=== PATIENT | female | born 1940 | race Caucasian/White ===

== ENCOUNTER 2018-04-07 16:16 | Emergency (ER) | payer MEDICARE, OTHER ==
[~2018-04-07] VITALS: Ht 160 cm; Wt 81.7 kg
[~2018-04-07 16:16] MED LIST: ALPR.25; AMLO10 PO; AMLO5 PO; AMOX875 PO; Amaryl2 MG PO; BENHYD1012; BUPR75 PO; CELE200; CITA20; CITA20 PO; CODACE30 PO; FAMO20 PO; FEXPSEER PO; GABA100 PO; GLIM2 PO; HYDACE5 PO; HYDHOMSY PO; LANS30EC; LISHYD2025 PO; LORA1 PO; LOSA25 PO; MELO7.5 PO; METF500; METF500 PO; NITR100CA PO; OLME20; PANT40 PO; PIOG15; PIOG15 PO; PRAV20 PO; PROM25 PO; ROSI4; ROSU10TA PO; SIMV20; SITA100T2 PO; SUCR1 PO; TRAM50 PO; [UNRECOGNIZED DRUG - OTHER] PO
[2018-04-07] MEDS ORDERED: NORT25 PO (16:34)
[2018-04-07 17:04] LABS: BASOPHILS ABSOLUTE AUTO 0.05 K/mm3 (0.00-0.23); BASOPHILS PERCENT AUTO 1 % (0-2); EOSINOPHILS ABSOLUTE AUTO 0.17 K/mm3 (0.00-0.68); EOSINOPHILS PERCENT AUTO 2 % (0-6); Hematocrit 30.5 % (33.0-51.0); Hemoglobin 10.2 g/dL (11.5-16.0); IMMATURE GRAN ABSOLUTE AUTO 0.04 K/mm3 (0.00-0.10); IMMATURE GRAN PERCENT AUTO 0 % (0-1); LYMPHOCYTES ABSOLUTE AUTO 2.82 K/mm3 (0.84-5.20); LYMPHOCYTES PERCENT AUTO 28 % (21-46); MONOCYTES ABSOLUTE AUTO 0.65 K/mm3 (0.16-1.47); MONOCYTES PERCENT AUTO 7 % (4-13); Mean Corpuscular HGB 29.2 pg (26.0-34.0); Mean Corpuscular HGB Conc 33.4 g/dL (31.5-36.5); Mean Corpuscular Volume 87 fL (80-100); Mean Platelet Volume 10.7 fL (9.1-12.4); NEUTROPHILS ABSOLUTE AUTO 6.19 K/mm3 (1.96-9.15); NEUTROPHILS PERCENT AUTO 62 % (41-73); Platelet Count 228 K/mm3 (150-400); RDW Coefficient Variation 13.7 % (11.7-14.2); RDW Standard Deviation 42.9 fL (35.1-46.3); Red Blood Cell Count 3.49 M/mm3 (3.80-5.20); White Blood Cell Count 9.92 K/mm3 (4.00-11.30)
[2018-04-07 17:29] LABS: Albumin, Blood 3.6 g/dL (3.4-5.0); Albumin/Globulin Ratio 0.9 (0.8-1.8); Bilirubin, Total 0.3 mg/dL (0.1-1.0); Bun/Creatinine Ratio 29.8 (12.0-20.0); Calcium, Blood 9.1 mg/dL (8.5-10.1); Creatinine, Blood 1.91 mg/dL (0.40-1.00); Globulin, Blood 3.9 g/dL (2.2-4.0); Potassium, Blood 3.8 mmol/L (3.5-5.5); Total Protein, Blood 7.5 g/dL (6.4-8.2)
== END 2018-04-07 18:45 | disposition home or self-care (01) ==
LOC: ER 16:16
PROVIDERS: Emergency Medicine
DX: E11.649 Type 2 diabetes mellitus with hypoglycemia without coma (principal); Z88.8 Allergy status to other drugs, medicaments and biological substances; Z88.5 Allergy status to narcotic agent; Z79.899 Other long term (current) drug therapy; E11.9 Type 2 diabetes mellitus without complications; I10 Essential (primary) hypertension
CPT/HCPCS: 36415; 80053; 82947; 85025

== ENCOUNTER → 2018-04-10 | Outpatient (CLI) | payer MEDICARE, OTHER ==
[~2018-04-10] MED LIST changes: +NORT25 PO
== END ==
LOC: LAB SHORT 14:05 → PLD 14:05
DX: C44.41 Basal cell carcinoma of skin of scalp and neck (principal)
CPT/HCPCS: 88305

== ENCOUNTER → 2018-11-29 | Outpatient (CLI) | payer MEDICARE, OTHER ==
[2018-11-29 16:40] LABS: Hematocrit 35.3 % (33.0-51.0); Hemoglobin 11.5 g/dL (11.5-16.0)
[2018-11-29 17:11] LABS: Protein, Urine Random 63.8 mg/dL (0.0-11.9)
[2018-11-29 17:13] LABS: Creatinine, Urine Random 94.9 mg/dL (27.00-270.00)
[2018-11-29 17:14] LABS: Albumin, Blood 3.3 g/dL (3.4-5.0); Anion Gap 7 mmol/L (6-16); Blood Urea Nitrogen 35 mg/dL (8-24); Bun/Creatinine Ratio 21.6 (12.0-20.0); CO2, Blood 25 mmol/L (21-32); Calcium, Blood 9.3 mg/dL (8.5-10.1); Chloride, Blood 102 mmol/L (98-108); Creatinine, Blood 1.62 mg/dL (0.40-1.00); Glomerular Filtration Rate 33 (60-); Glucose, Blood 171 mg/dL (70-99); Potassium, Blood 4.5 mmol/L (3.5-5.5); Sodium, Blood 134 mmol/L (136-145)
== END | disposition home or self-care (01) ==
LOC: LAB SHORT 14:31 → LAB 14:31
PROVIDERS: Internal Medicine
DX: N18.4 Chronic kidney disease, stage 4 (severe) (principal); D63.1 Anemia in chronic kidney disease
CPT/HCPCS: 36415; 80069; 82570; 83970; 84156; 85014; 85018

== ENCOUNTER → 2019-02-04 | Outpatient (CLI) | payer MEDICARE, OTHER | END | disposition home or self-care (01) | LOC: LAB 13:30 → LAB SHORT 13:30 | PROVIDERS: Internal Medicine | DX: E11.22 Type 2 diabetes mellitus with diabetic chronic kidney disease (principal); N18.3 Chronic kidney disease, stage 3 (moderate); E55.9 Vitamin D deficiency, unspecified; Z79.899 Other long term (current) drug therapy | CPT/HCPCS: 82043; 82570 ==

== ENCOUNTER → 2019-06-13 | Outpatient (CLI) | payer MEDICARE, OTHER ==
[2019-06-13 15:20] LABS: Source, Urine Clean Catch
[2019-06-13 16:53] LABS: Bilirubin, Urine Neg (Neg); Blood, Urine Neg (Neg); Glucose Qualitative, Urine Neg (Neg); Ketones, Urine Neg (Neg); Leukocyte Esterase, Urine Neg (Neg); Nitrite, Urine Neg (Neg); Protein, Urine 1+ (Neg); Urobilinogen, Urine NORM (Normal)
[2019-06-13 17:08] LABS: Appearance, Urine Clear (Clear); Color, Urine Yellow (P-Yellow)
[2019-06-13 17:21] LABS: Creatinine, Urine Random 67.1 mg/dL (27.00-270.00)
== END | disposition home or self-care (01) ==
LOC: LAB SHORT 15:16 → LAB 15:16
PROVIDERS: Internal Medicine
DX: N18.3 Chronic kidney disease, stage 3 (moderate) (principal)
CPT/HCPCS: 82570; 84156

== ENCOUNTER → 2019-10-31 | Outpatient (CLI) | payer MEDICARE, OTHER | LOC: LAB EV 14:30 → LAB SHORT 14:30 | DX: L02.214 Cutaneous abscess of groin (principal) | CPT/HCPCS: 87070; 87075; 87076; 87185; 87205 ==

== ENCOUNTER → 2021-10-06 | Outpatient (CLI) | payer MEDICARE, OTHER ==
[2021-10-06 18:33] LABS: Creatinine, Urine Random 38.7 mg/dL (27.00-270.00); Protein, Urine Random 22.1 mg/dL (0.0-11.9); Protein/Creat Ratio, Ur Random 0.6
== END ==
LOC: LAB 15:00 → LAB SHORT 15:00 → LAB FUT 04-13 16:00
PROVIDERS: Internal Medicine
DX: N18.32 Chronic kidney disease, stage 3b (principal); Z88.5 Allergy status to narcotic agent; Z88.6 Allergy status to analgesic agent; Z88.8 Allergy status to other drugs, medicaments and biological substances
CPT/HCPCS: 82570; 84156

== ENCOUNTER 2021-12-27 10:48 | Day surgery (SDC) | payer MEDICARE, OTHER ==
[2021-12-27] MEDS ORDERED: PANT40 PO (13:38)
[2021-12-27] MEDS ORDERED: Cymbalta20 MG PO (13:38)
[2021-12-27] MEDS ORDERED: AMLO5 PO (13:38)
[2021-12-27] MEDS ORDERED: LOSA25 PO (13:39)
[2021-12-27] MEDS ORDERED: OXYC5 PO (13:39)
[2021-12-27] MEDS ORDERED: Actos15 MG PO (13:39)
[2021-12-27] MEDS ORDERED: GABA100 PO (13:40)
--- NOTE | 2021-12-27 13:45 | NUR ---
PT RESTING IN CHAIR. SHE COMPLAINS OF A WARD. WOULD LIKE THE LIGHTS TURNED OFF.
== END 2021-12-27 15:00 | disposition home or self-care (01) ==
LOC: ATC 10:48
DX: U07.1 COVID-19 (principal); I12.9 Hypertensive chronic kidney disease with stage 1 through stage 4 chronic kidney disease, or unspecified chronic kidney disease; E11.22 Type 2 diabetes mellitus with diabetic chronic kidney disease; N18.4 Chronic kidney disease, stage 4 (severe); Z79.84 Long term (current) use of oral hypoglycemic drugs; Z88.5 Allergy status to narcotic agent; Z96.653 Presence of artificial knee joint, bilateral

== ENCOUNTER → 2022-07-04 | Outpatient (CLI) | payer MEDICARE, OTHER ==
[~2022-07-04] MED LIST changes: +Actos15 MG PO; +Cymbalta20 MG PO; +OXYC5 PO
[2022-07-04 15:38] LABS: BASOPHILS ABSOLUTE AUTO 0.04 K/mm3 (0.00-0.23); BASOPHILS PERCENT AUTO 1 % (0-2); EOSINOPHILS ABSOLUTE AUTO 0.13 K/mm3 (0.00-0.68); EOSINOPHILS PERCENT AUTO 2 % (0-6); Hematocrit 33.9 % (33.0-51.0); Hemoglobin 11.1 g/dL (11.5-16.0); IMMATURE GRAN ABSOLUTE AUTO 0.02 K/mm3 (0.00-0.10); IMMATURE GRAN PERCENT AUTO 0 % (0-1); LYMPHOCYTES ABSOLUTE AUTO 2.63 K/mm3 (0.84-5.20); LYMPHOCYTES PERCENT AUTO 40 % (21-46); MONOCYTES ABSOLUTE AUTO 0.55 K/mm3 (0.16-1.47); MONOCYTES PERCENT AUTO 8 % (4-13); Mean Corpuscular HGB 29.2 pg (26.0-34.0); Mean Corpuscular HGB Conc 32.7 g/dL (31.5-36.5); Mean Corpuscular Volume 89 fL (80-100); NEUTROPHILS ABSOLUTE AUTO 3.15 K/mm3 (1.96-9.15); NEUTROPHILS PERCENT AUTO 48 % (41-73); Platelet Count 202 K/mm3 (150-400); RDW Coefficient Variation 15.3 % (11.7-14.2); RDW Standard Deviation 50.1 fL (35.1-46.3); White Blood Cell Count 6.52 K/mm3 (4.00-11.30)
[2022-07-04 15:49] LABS: Albumin, Blood 3.5 g/dL (3.4-5.0); Bilirubin, Total 0.3 mg/dL (0.1-1.0); Bun/Creatinine Ratio 22.9 (12.0-20.0); Calcium, Blood 7.7 mg/dL (8.5-10.1); Creatinine, Blood 1.79 mg/dL (0.40-1.00); Globulin, Blood 3.5 g/dL (2.2-4.0); Potassium, Blood 4.9 mmol/L (3.5-5.5)
== END | disposition home or self-care (01) ==
LOC: LAB SHORT 15:33 → LAB 15:33
PROVIDERS: Physician Assistant
DX: R10.9 Unspecified abdominal pain (principal)
CPT/HCPCS: 80053; 82150; 83690; 85025

== ENCOUNTER → 2022-07-10 | Outpatient (CLI) | payer MEDICARE, OTHER ==
[2022-07-10 17:42] LABS: Source, Urine Clean Catch
[2022-07-10 18:23] LABS: Appearance, Urine Clear (Clear); Bilirubin, Urine Neg (Neg); Blood, Urine Neg (Neg); Color, Urine Yellow (P-Yellow); Glucose Qualitative, Urine Neg (Neg); Ketones, Urine Neg (Neg); Leukocyte Esterase, Urine 1+ (Neg); Nitrite, Urine Neg (Neg); Protein, Urine 3+ (Neg); Urobilinogen, Urine NORM (Normal)
[2022-07-10 18:47] LABS: Bacteria Mod /hpf; Hyaline Casts 0-2 /lpf (0-2); Red Blood Cells, Urine 0-2 /hpf (0-2); Squamous Epithelial Cells Mod /hpf (Few); Transitional Epithelial Cells Few /hpf (0-Rare)
[2022-07-10 19:40] LABS: Protein, Urine Random 101.9 mg/dL (0.0-11.9); Protein/Creat Ratio, Ur Random 0.8
== END | disposition home or self-care (01) ==
LOC: LAB SHORT 17:12
PROVIDERS: Internal Medicine Nephrology
DX: N18.32 Chronic kidney disease, stage 3b (principal)
CPT/HCPCS: 81001; 82570; 84156; 87086; 87147

== ENCOUNTER → 2023-11-09 | Outpatient (CLI) | payer MEDICARE, OTHER ==
[2023-11-09 14:27] LABS: Source, Urine Clean Catch
[2023-11-09 18:09] LABS: Appearance, Urine Clear (Clear); Bilirubin, Urine Neg (Neg); Blood, Urine Neg (Neg); Color, Urine Yellow (P-Yellow); Glucose Qualitative, Urine Neg (Neg); Ketones, Urine Neg (Neg); Leukocyte Esterase, Urine 1+ (Neg); Nitrite, Urine Neg (Neg); Protein, Urine 3+ (Neg); Specific Gravity, Urine 1.015 (1.003-1.022); Urobilinogen, Urine NORM (Normal)
[2023-11-09 18:17] LABS: Bacteria Few /hpf; Red Blood Cells, Urine 0-2 /hpf (0-2); Squamous Epithelial Cells Few /hpf (Few)
[2023-11-09 18:46] LABS: Creatinine, Urine Random 83.1 mg/dL (27.00-270.00); Protein/Creat Ratio, Ur Random 0.7
== END ==
LOC: LAB SHORT 14:26 → LAB 14:26
PROVIDERS: Hospitalist
DX: N18.32 Chronic kidney disease, stage 3b (principal)
CPT/HCPCS: 81001; 82570; 84156; 87086

== ENCOUNTER 2023-12-21 14:52 | Emergency (ER) | payer MEDICARE, OTHER ==
[~2023-12-21] VITALS: Ht 162.6 cm; Wt 65.8 kg
[2023-12-21 15:06] VITALS: BP 154/58
== END 2023-12-21 17:32 | disposition home or self-care (01) ==
LOC: ER 14:52
DX: L08.9 Local infection of the skin and subcutaneous tissue, unspecified (principal); Z88.8 Allergy status to other drugs, medicaments and biological substances; Z88.5 Allergy status to narcotic agent; Z79.899 Other long term (current) drug therapy; E11.9 Type 2 diabetes mellitus without complications; I12.9 Hypertensive chronic kidney disease with stage 1 through stage 4 chronic kidney disease, or unspecified chronic kidney disease; N18.4 Chronic kidney disease, stage 4 (severe)
CPT/HCPCS: 26011; 99283-25

== ENCOUNTER 2024-01-03 01:56 | Day surgery (SDC) | payer MEDICARE, OTHER | END 2024-01-03 14:40 | disposition home or self-care (01) | LOC: ATC 01:56 | DX: R35.0 Frequency of micturition (principal); R35.1 Nocturia; I10 Essential (primary) hypertension | CPT/HCPCS: 51798 ==